=== PATIENT | female | born 1970 | race Caucasian/White ===

== ENCOUNTER 2021-04-05 15:04 | Emergency (ER) | payer OTHER ==
[2021-04-05] MEDS ORDERED: Ketorolac 30 MG/ML SDV IM ONE (15:30)
[2021-04-05] MEDS ORDERED: Ondansetron 4 MG Tab.DIS PO ONE (15:30)
[2021-04-05 16:10] LABS: BLOOD UREA NITROGEN,BUN 15 mg/dL (7.0-18.0); CARBON DIOXIDE,CO2 25.5 mmol/L (21.0-32.0); CHLORIDE,CL 102 mmol/L (98-107); GLUCOSE RANDOM 113 mg/dL (74-106); LIPASE 59 U/L (73-393); POTASSIUM,K 4.1 mmol/L (3.5-5.1); SODIUM,NA 139 mmol/L (136-145)
== END 2021-04-05 17:17 | disposition home or self-care (01) ==
LOC: MW.ED 15:04
DX: R20.0 Anesthesia of skin (principal); T36.8X5A Adverse effect of other systemic antibiotics, initial encounter
CPT/HCPCS: 36415; 80053; 81003; 83690; 85025; 96372; 99283; A9270; J1885

== ENCOUNTER 2023-05-13 18:54 | Emergency (ER) | payer OTHER ==
[2023-05-13] MEDS: Lidocaine 1% 5 ML VIAL INJECT ONE (19:51)
[2023-05-13] MEDS: Amoxicillin/Clavulanate K 875-125 MG Tab PO ONE (19:51)
[2023-05-13] MEDS: Diphtheria,Pertussis(Acell),Tetanus Vaccine 0.5 ML Syringe IM ONE (19:51)
== END 2023-05-13 20:30 | disposition home or self-care (01) ==
LOC: MW.ED 18:54
DX: S61.451A Open bite of right hand, initial encounter (principal); Z23 Encounter for immunization; W54.0XXA Bitten by dog, initial encounter
CPT/HCPCS: 12001; 90471; 90715; 99283; A9270; J3490